=== PATIENT | male | born 1990 | race Asian ===

== ENCOUNTER 2024-03-12 11:49 | Emergency (ER) | payer OTHER, SELFPAY ==
[2024-03-12 12:26] VITALS: BP 137/86; PULSE 83; RESP 16; TEMP 36.6; O2SAT 96; BMI 36.9
[2024-03-12 13:08] LABS: Add Manual Diff / Slide Review NO; Basophils Absolute Auto 0 /uL (0-100); Basophils Percent Auto 0.4 % (0-2); Eosinophils Absolute Auto 0 /uL (0-450); Eosinophils Percent Auto 0.3 % (2-4); Hematocrit 48.9 % (41-53); Hemoglobin 16.9 g/dL (13.5-17.5); Lymphocytes Absolute Auto 1200 /uL (1100-4500); Lymphocytes Percent Auto 12.6 % (25-40); Mean Corpuscular HGB Conc 34.4 % (30-36); Mean Corpuscular Hemoglobin 29.3 PG (26-34); Monocytes Absolute Auto 500 /uL (0-900); Neutrophils Absolute Auto 8000 /uL (1500-7000); Neutrophils Percent Auto 81.7 % (50-75); Platelet Count 296 X10^3/uL (150-400); Red Blood Cell Count 5.76 X10^6/uL (4.5-5.9); Red Cell Distribution Width 12.5 % (11.6-14.8); White Blood Cell Count 9.8 X10^3/uL (4.5-11.0)
[2024-03-12 13:14] LABS: Ur Creatinine Normal (Normal); Ur Specific Gravity Normal (Normal); Urine Amphetamines Negative (Negative); Urine Barbiturates Negative (Negative); Urine Benzodiazepines Negative (Negative); Urine Cocaine Negative (Negative); Urine MDMA Negative (Negative); Urine Methadone Negative (Negative); Urine Methamphetamines Negative (Negative); Urine Opiates Negative (Negative); Urine Oxycodone Negative (Negative); Urine Phencyclidine Negative (Negative); Urine THC Negative (Negative); Urine Tricyclic Antidepressant Negative (Negative); Urine pH Normal (Normal)
[2024-03-12 13:20] LABS: Acetaminophen < 10 ug/mL (10-30); Alanine Aminotransferase 34 IU/L (<50); Albumin 4.9 g/dL (3.5-5.0); Albumin Globulin Ratio 1.4 (1.0-2.8); Alkaline Phosphatase 60 U/L (38-126); Aspartate Aminotransferase 43 IU/L (17-59); BUN Creatinine Ratio 16.9 (6-22); Bilirubin Total 0.8 mg/dL (0.2-1.3); Blood Urea Nitrogen 15 mg/dL (9-20); Calcium 9.9 mg/dL (8.4-10.2); Carbon Dioxide 25 mmol/L (22-32); Chloride 105 mmol/L (98-107); Estimated Glomerular Filt Rate > 60 mL/min (>60); Ethanol (ETOH) < 10 mg/dL; Globulin 3.5 g/dL (1.7-4.1); Glucose 97 mg/dL (70-100); HEMOLYSIS < 15 (0-50); Potassium 4.4 mmol/L (3.4-5.1); Salicylate < 1.0 mg/dL (<20); Sodium 140 mmol/L (137-145); Total Protein 8.4 g/dL (6.3-8.2)
[2024-03-12 13:31] LABS: Appearance Urine UA CLEAR; Bilirubin Urine UA NEGATIVE (NEGATIVE); Color Urine UA YELLOW; Glucose Urine UA NEGATIVE (Negative); Ketones Urine UA NEGATIVE (NEGATIVE); Leukocyte Esterase Urine UA NEGATIVE (NEGATIVE); Nitrite Urine UA NEGATIVE (Negative); Occult Blood Urine UA NEGATIVE (Negative); Protein Urine UA 2+ (Negative); Specific Gravity Urine UA >=1.030 (1.000-1.035); Urobilinogen Urine UA 0.2 E.U./dL (0.2)
[2024-03-12 13:36] LABS: Free T4, Direct Thyroxine 0.84 ng/dL (0.78-2.19)
[2024-03-12 13:50] LABS: Bacteria Urine Occasional (0-1); Culture Indicated Urine Cult Not Indicated; RBC Urine 0-1/HPF (0-5/HPF); Squamous Epithelial Cell Urine None Seen (0-5/HPF); Urine Volume 10mL (spun); WBC Urine None Seen (0-5/HPF)
[2024-03-12 13:50] LABS: Thyroid Stimulating Hormone 0.807 uIU/mL (0.47-4.68)
--- NOTE | 2024-03-12 14:26 | ED.PSYCH ---
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 He does have access to firearms. Has not taken any medications. Denies substance abuse. Has ongoing history of depression, had been on Lexapro for about one year that seemed to generally be helpful but had side effect of weight gain, he took himself off of medication for one month, asked to be restarted, has been on Lexapro again for 1 month, still feels depressed. Recent suicidal ideation with use of firearms apparently told to other personnel. He would like to seek support and psychiatric consultation Exam Narrative Exam Narrative: GENERAL: Well-developed patient, in mild distress. HEAD: Atraumatic. Normocephalic. EYES: Pupils equal round and reactive. Extraocular motions intact. No scleral icterus. No injection or drainage. ENT: Nose without bleeding, purulent drainage. Throat without erythema, tonsillar hypertrophy or exudate. Airway patent. NECK: Trachea midline. Non tender CARDIOVASCULAR: Regular rate and rhythm without murmurs, gallops, or rubs. RESPIRATORY: Clear to auscultation. Breath sounds equal bilaterally. No wheezes, rales, or rhonchi. GASTROINTESTINAL: Abdomen soft, non-tender, nondistended. EXTREMITIES: No edema or joint tenderness. BACK: Nontender without deformity or crepitance. No flank tenderness. NEURO: AOx3. Motor functions grossly nonfocal SKIN: No rash or erythema of visible areas Initial Vital Signs Initial Vital Signs: Vital Signs Temperature 97.9 F 03/12/24 12:26 Pulse Rate 83 03/12/24 12:26 Respiratory Rate 16 03/12/24 12:26 Blood Pressure 137/86 03/12/24 12:26 Pulse Oximetry 96 03/12/24 12:26 Oxygen Delivery Method Room Air 03/12/24 12:26 Course Orders Ordered: ED Orders 03/12/24 12:33 Consult to [facility] [place] Spreading Machine Operator Stat 03/12/24 12:45 Urinalysis and Microscopic Stat Urine Drug Screen, Rapid Stat 03/12/24 12:54 Acetaminophen Stat Complete Blood Count AUTO DIFF Stat Comprehensive Metabolic Panel Stat Ethanol (ETOH) Stat Free T4, Direct Thyroxine Stat Salicylate Stat Thyroid Stimulating Hormone Stat Vital Signs Vital signs: Vital Signs - 8 hr 03/12/24 12:26 Temperature 97.9 F Pulse Rate 83 Respiratory Rate 16 Blood Pressure 137/86 Pulse Oximetry 96 Oxygen Delivery Method Room Air MDM - Psych Lab Data Attestation: I reviewed the patient's lab results. Lab results narrative: White blood cell count 9800, hemoglobin 16.9, platelets adequate. Basic metabolic panel unremarkable. TSH unremarkable. Liver functions unremarkable. Tylenol, salicylate negative. Ethanol negative. Urine drug screen negative. Urinalysis negative. 03/12/24 12:54 03/12/24 12:54 Labs: Lab Results 03/12/24 03/12/24 03/12/24 Range/Units 12:45 12:45 12:54 WBC 9.8 (4.5-11.0) X10^3/uL RBC 5.76 (4.5-5.9) X10^6/uL Hgb 16.9 (13.5-17.5) g/dL Hct 48.9 (41-53) % MCV 85.0 (80-100) fL MCH 29.3 (26-34) PG MCHC 34.4 (30-36) % RDW 12.5 (11.6-14.8) % Plt Count 296 (150-400) X10^3/uL Neut % (Auto) 81.7 H (50-75) % Lymph % (Auto) 12.6 L (25-40) % Roane % (Auto) 5.0 (3-14) % Eos % (Auto) 0.3 L (2-4) % Baso % (Auto) 0.4 (0-2) % Neut # (Auto) 8000 H (2750-5906) /uL Lymph # (Auto) 1200 (5254-9373) /uL Roane # (Auto) 500 (0-900) /uL Eos # (Auto) 0 (0-450) /uL Baso # (Auto) 0 (0-100) /uL Sodium 140 (137-145) mmol/L Potassium 4.4 (3.4-5.1) mmol/L Chloride 105 (98-107) mmol/L Carbon Dioxide 25 (22-32) mmol/L BUN 15 (9-20) mg/dL Creatinine 0.89 (0.66-1.25) mg/dL Estimated GFR > 60 (>60) mL/min BUN/Creatinine Ratio 16.9 (6-22) Glucose 97 (70-100) mg/dL Calcium 9.9 (8.4-10.2) mg/dL Total Bilirubin 0.8 (0.2-1.3) mg/dL AST 43 (17-59) IU/L ALT 34 (<50) IU/L Alkaline Phosphatase 60 (38-126) U/L Total Protein 8.4 H (6.3-8.2) g/dL Albumin 4.9 (3.5-5.0) g/dL Globulin 3.5 (1.7-4.1) g/dL Albumin/Globulin Ratio 1.4 (1.0-2.8) TSH 0.807 (0.47-4.68) uIU/mL Free T4 0.84 (0.78-2.19) ng/dL Urine Color Yellow Urine Appearance Clear Urine pH 6.0 Normal (4.5-8.0) Ur Specific [place] >=1.030 H (1.000-1.035) Urine Protein 2+ H (Negative) Urine Glucose (UA) Negative (Negative) g/dL Urine Ketones Negative (NEGATIVE) Urine Occult Blood Negative (Negative) Urine Nitrate Negative (Negative) Urine Bilirubin Negative (NEGATIVE) Urine Urobilinogen 0.2 (0.2) E.U./dL Ur Leukocyte Esterase Negative (NEGATIVE) Urine RBC 0-1/hpf (0-5/HPF) Urine WBC None seen (0-5/HPF) Ur Squamous Epith Cells None seen (0-5/HPF) Urine Bacteria Occasional (0-1) (None) Ur Culture Indicated? Cult not indicated Vol Urine Centrifuged 10ml (spun) Salicylates < 1.0 (<20) mg/dL U Opiates 300ng/mL cut Negative (Negative) Ur Oxycodone Screen Negative (Negative) Urine Methadone Screen Negative (Negative) Acetaminophen < 10 (10-30) ug/mL Ur Barbiturates Screen Negative (Negative) U Tricyclic Antidepress Negative (Negative) Ur Phencyclidine Scrn Negative (Negative) Ur Amphetamines Screen Negative (Negative) U Methamphetamines Scrn Negative (Negative) Ur MDMA Scrn (Ecstasy) Negative (Negative) U Benzodiazepines Scrn Negative (Negative) Urine Cocaine Screen Negative (Negative) U Marijuana (THC) Screen Negative (Negative) Urine Specific [place] Normal (Normal) Ethyl Alcohol < 10 ( - 10) mg/dL Ur Creatinine Normal (Normal) MDM Narrative Medical decision making narrative: 33-year-old male with ongoing depression now with suicidal ideation, active , other personnel apparently have reported him expressing thoughts of wanting to hurt himself, on recent Lexapro restart of medications. Screening labs unremarkable. No ingestions or lacerations obvious on examination, unremarkable physical examination. Medically cleared for psychiatric disposition. field services analyst consulted and aware, plan for patient to go with direct escort to 3:00 p.m. clinic doctor yajaira psychiatry at [facility] would be behavioral health clinic now. Discharged home with escort to psychiatric outpatient clinic appointment Discharge Plan Departure Patient Disposition: Home Clinical Impression: Depression Activity Restrictions/Additional Instructions: Ongoing depression, worsening on Lexapro restart. Medically cleared. Screening laboratory studies unremarkable. Evaluation by manager social. Escort by personnel direct to clinic appointment now at 3:00 p.m., Dr. Marroquin, psychiatry at [facility] would be behavioral health clinic. Stand Alone Forms: Patient Portal/API/Survey
--- NOTE | 2024-03-12 14:38 | CM.SWNOTE ---
ED ADULT CROSSING GUARD Assessment Note: ADULT CROSSING GUARD - Fish Technologist Assessment ADULT CROSSING GUARD/Fish Technologist Assessment Time Spent with Patient Start date 03/12/24 Visit Start Time 13:20 End date 03/12/24 Visit End Time 13:50 Total time Care Management spent on 30 minutes patient visit-in minutes Mental Health Screening Include Onset, Duration, Intensity Presenting Problem Patient presented in POV, with leadership with concerns for SI and anxiety. Patient explains they initiated conversation with leadership this morning as the patient endorsed SI over the weekend. Precipitating Event(s) Patient explained they attempted last month to titrate off of Lexapro but recognized anxiety increasing at the beginning of February and was placed back on Lexapro . He recognized he was having SI this weekend and has access to 3 firearms in the home. Patient explained they moved to [place] about five months ago and did not get to establish a therapist yet. Patient reports having increased stress at work, feeling like he is not good enough and that he is constantly getting negative feedback from his leadership at work. Patient discusses feeling hopeless, not focused and not myself. Patient Strengths Patient is a self-aware, communicative and collaborates effectively with his Primary Care Provider. Current Behavioral Health Provider(s) Patient does not have a MH Include Facility, Provider, Ph. # provider at this time, he obtains his Lexapro from his PCP. Psych. Hx Mental Health and Chemical Anxiety, depression Dependency Family Hx of Behavioral Abuse None reported. Psychiatric Hospitalizations (date(s)/ None reported. location) Psychosocial information & Support Patient is a 33yo male, Systems resident of [place]. 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 Legal Concerns Legal Matters - Outstanding Issues None reported. Mental Status Orientation (Person/Place/Time) AOx3 Stated Mood Not good enough. Affect (Congruent with Mood?) Tearful, flat, congruent with mood Thought Content - Specify/Describe None reported or assessed Obsessions, Delusions, Hallucinations during interview. Thought Processes (Ccelwvm-Jniimeeh-Fmna Logical, goal directed Kvuhaqow-Dnsfhbfb-Mwvvlsrwsc- Lmbhdcmyvkqabi-Xailvgc-Ndqsczlmrifn- Thought Blocking) Speech (Paodoq-Ctne-Jgoflqt-Rapid-Soft- Normal, soft Loud-Pressured) Motor (Dpepgc-Hmmlgrxyg-Frxd-Other) Normal Insight (Oehz-Uxlb-Fxkh/Limited) Good Judgement (Wwpw-Cchl-Ffsn/Limited) Good Impulse Control (Adequate-Impaired) Adequate Memory (Namtkdkqi-Kwmqej-Igtmug, Intact Impaired-Intact) Concentration (Intact-Impaired) Intact Attention (Intact-Impaired) Intact Behavior (Appropriate-Inappropriate) Appropriate Additional Comment Patient is calm, cooperative and communicative during assessment. Risk Assessment Suicidal Ideation (Plan) Yes Homicidal Ideation (Plan) No Comment Patient denies HI. Patient endorses SI, especially this weekend when he was alone in his apartment. Patient denies SI at time of assessment today . Patient explains he was feeling low, hopeless and negatively about himself and his work ethic. Patient was contemplating utilizing his firearm to end his life. Intervention Intervention Reviewed chart and discussed pt with ED staff to identify discharge/social needs. ADULT CROSSING GUARD meets with patient, introduced self and role. Patient reports the events over the weekend which led him to discuss this with his [place] leadership who brought him to the ED. Patient explains he has been feeling hopeless and negatively about himself which attribute to his SI. Patient denies SI at time of interview . Patient discusses that he has been working with his PCP to taper off of his Lexapro 5mg dose last month and was completely off of it when he had a panic attack which led him to get placed back on the medication. ED ADULT CROSSING GUARD deployed PHQ9 and GAD7 and pt scored 21 and 9, respectively. ADULT CROSSING GUARD and patient discuss next steps. Patient explains they feel with safety planning and the support of his leadership, he will contract for safety and can discharge home. Patient has 3 firearms in his apartment and is requesting his leadership work with him on getting them out of his apartment safely. ED ADULT CROSSING GUARD called [facility] and requested pt get established with care of a counselor. [facility] recommended that pt see a psychiatrist at [facility] as soon as today at 1500. ED ADULT CROSSING GUARD discussed with ED Provider, Dr. Betancourt, who agreed to discharge pt with safety plans to meet with Provider at [facility] to establish care. ED ADULT CROSSING GUARD provided crisis contacts and copy of MH Screening tools to present to [facility] appt. Pt verbalized understanding and cooperation with plans. Plan RA Plan Pt to discharge with ALBIN Gallo to escort pt to [facility] for psychiatry establishment appt at [address] Marroquin. Mica Atkinson, [facility]
== END 2024-03-12 14:48 | disposition home or self-care (01) ==
PROVIDERS: Emergency Provider Emergency Medicine
DX: F32.A Depression, unspecified (principal); R45.851 Suicidal ideations
CPT/HCPCS: 36415; 80053; 80305; 80320; 80329; 81001; 84439; 84443; 85025; 99284; G0480

== ENCOUNTER → 2024-06-04 11:55 | Outpatient (CLI) | payer OTHER, SELFPAY ==
--- NOTE | 2024-06-04 11:56 | DI.CT.S_ITS ---
PROCEDURE: CT PEL WO CON INDICATIONS: RIGHT GROIN PAIN TECHNIQUE: Noncontrast 3 mm axial sections acquired through the bony pelvis, with coronal and sagittal reformatting. COMPARISON: None. FINDINGS: Image quality: Excellent. Bones: Pelvic ring is intact. No acute fracture or dislocation. No evidence of avascular necrosis of femoral head. No suspicious intraosseous lesions. Mild degenerative disc bulge and bilateral facet arthrosis at L4-5 and L5-S1 levels are seen causing mild central canal stenosis and cwjf-iy-pbhqhxcr bilateral neural foraminal narrowing. Soft tissues: There is no pelvic free fluid or free air. No abnormal bowel wall thickening. No abscess collection. Urinary bladder is partially distended and shows no gross abnormality. No inguinal lymphadenopathy or hernia. No discrete soft tissue mass or drainable fluid collection. No abnormal soft tissue calcifications. No intramuscular hematoma. IMPRESSION: 1. No pelvic fracture or dislocation. No suspicious bony lesions. 2. Mild spondylitic changes involving lower lumbar spine at L4-5 and L5-S1 levels as above. 3. No gross pelvic soft tissue abnormalities. Dictated by: John Chaves M.D. on 06/04/2024 at 16:27 Approved by: John Chaves M.D. on 06/04/2024 at 16:29
== END ==
PROVIDERS: Referring Provider Physician Assistant; Visit Provider Physician Assistant
DX: M48.061 Spinal stenosis, lumbar region without neurogenic claudication (principal); M48.07 Spinal stenosis, lumbosacral region; M47.812 Spondylosis without myelopathy or radiculopathy, cervical region; M47.816 Spondylosis without myelopathy or radiculopathy, lumbar region; R10.2 Pelvic and perineal pain
CPT/HCPCS: 72192

== ENCOUNTER 2024-07-25 12:39 | Day surgery (SDC) | payer OTHER, SELFPAY ==
[2024-07-18 12:53] VITALS: BMI 36.9
[2024-07-25 14:57] VITALS: BP 147/92; PULSE 78; RESP 14; TEMP 36.1; O2SAT 100; BMI 36.9
--- NOTE | 2024-07-25 15:23 | PM.PREOP ---
Pre-operative Note COVID-19 COVID-19 status: Not tested Interval Note History & Physical reviewed/Exam performed by Physician: Yes Changes to H&P: No ASA Class (for procedural sedation): II
[2024-07-25] MEDS: ACETAMINOPHEN 325 MG TABLET 975 MG PO (15:39)
[2024-07-25] MEDS: LACTATED RINGERS 1,000 ML 42 ML IV (15:39)
[2024-07-25] MEDS: CEFAZOLIN VIAL 3 GM in SODIUM CHLORIDE 0.9% 100 ML IV (16:15)
--- NOTE | 2024-07-25 16:50 | SUR.OPER ---
Supine on padded OR bed with pink pad, chest strap on chest, head on pillow, arms padded and tucked at sides, legs uncrossed, safety belt at thigh, tape over blanket over lower legs .
[2024-07-25] MEDS: BUPIVACAINE 0.5% W/ EPI (PF) 30 ML VIAL INJ (16:55)
--- NOTE | 2024-07-25 18:20 | P.OP_ITS ---
Operative Date/Time/Diagnoses Date of procedure: 07/25/24 Time of procedure: 18:20 Pre-op diagnosis: Bilateral inguinal hernias Post-op diagnosis: same Procedure & Clinicians Procedure: Robotic bilateral inguinal hernia repair with mesh Same procedure as scheduled: Yes Surgeon: Shin Villasenor Corduroy Cutting Supervisor: Jose Elias Alvarado Anesthesia Type: General Operative Notes Findings: Small bilateral indirect defects Estimated Blood Loss (mL): 10 Procedure in detail: The patient was given preoperative antibiotics. The patient was brought to the operating room, placed on the table in the supine position with the arms tucked and general anesthesia was induced. The abdomen was prepped and draped in the usual fashion. A time-out was performed. A 1 cm transverse incision was cr eated superior to the umbilicus and dissection was carried down to the fascia. The fascia was scored transversely with cautery. The fascia was grasped with a Ji clamp to elevate the abdominal wall. A Peon clamp was used to jarqiun the peritoneum. The 12 mm robotic port was placed and the abdomen was insufflated to 15 mmHg. The camera was inserted, there was no evidence of any injury from t he entry. There appeared to be small indirect defects on both sides. 8 mm ports were placed under direct vision in the mid left and mid right abdomen. The patient was positioned in Trendelenburg. The robot was docked. We started on the left side by reading a left peritoneal flap. The peritoneum was dissected off the left cord structures and the Damion's ligament was exposed. A large left Bard mesh was brought in and placed over the defect with the medial edge overlapping the pubic symphysis. Next we moved to the right side. We created right peritoneal flap. The peritoneum was dissected off the right cord structures and the Damion's ligament was exposed. A large right Bard mesh was brought in and placed over the defect with the medial edge overlapping the pubic symphysis. We then closed both peritoneal flaps with a running 3-0 barbed suture. We took one last look around the abdomen and saw no other abnormalities. The suture was removed and accounted for. The robot was undocked. The 8 mm ports were removed under direct vision. The abdomen was desufflated. The 12 mm port was removed. Additional local was injected into the fascia and the fascial incision was closed with 2 interrupted 0 Vicryl sutures. The skin incisions were closed with 4 Monocryl, Steri-Strips and Band-Aids. Jose Elias HOWELL provided assistance with exposure, retraction and closure of incisions. Complications: none Post-operative Condition: stable Disposition: PACU
[2024-07-25 18:34] VITALS: BP 137/88; PULSE 99; RESP 14; TEMP 36.6; O2SAT 99
[2024-07-25 18:38] VITALS: BP 137/90; PULSE 98; RESP 13; TEMP 36.6; O2SAT 95
[2024-07-25 18:43] VITALS: BP 138/88; PULSE 101; RESP 14; TEMP 36.5; O2SAT 95
[2024-07-25 18:53] VITALS: BP 141/86; PULSE 93; RESP 16; TEMP 36.5; O2SAT 97
[2024-07-25] MEDS: OXYCODONE IR 5 MG TABLET PO (18:55)
[2024-07-25] MEDS: ONDANSETRON 4 MG/2 ML INJ IV (19:07)
[2024-07-25 19:17] VITALS: BP 140/69; PULSE 91; RESP 18; TEMP 36.5; O2SAT 99
== END 2024-07-25 19:20 | disposition home or self-care (01) ==
PROVIDERS: Referring Provider Surgery; Visit Provider Surgery
PROC: 0YQ54ZZ Repair Right Inguinal Region, Percutaneous Endoscopic Approach (ICD-10-PCS; CPT 49650; principal; 2024-07-25 14:15)
DX: K40.20 Bilateral inguinal hernia, without obstruction or gangrene, not specified as recurrent (principal)
CPT/HCPCS: 49650; C1781; J0330; J0690; J1100; J1171; J1885; J2250; J2405; J2704; J3010; J3490